=== PATIENT | female | born 1965 | race Caucasian/White ===

== ENCOUNTER 2017-12-19 22:51 | Emergency (ER) | payer OTHER ==
[~2017-12-19] VITALS: Ht 165.1 cm; Wt 95.7 kg
--- OUTSIDE RECORDS SUMMARY | ~2017-12-19 | XMS | Clinical Summary ---
Demographics + + + | Address | [address] | | | [place] [address] | + + + | Home Phone | | + + + | Preferred Language | Unknown | + + + | Marital Status | | + + + | Temple Affiliation | NON | + + + | Race | White | + + + | Ethnic Group | Not or | + + + Author + + + | Author | [facility] | + + + | Organization | [facility] | + + + | Address | Unknown | + + + | Phone | Unavailable | + + + Support + + +---------+ + | Name | Relationship | Address | Phone | + + +---------+ + | ERIC BUI | ECON | Unknown | | + + +---------+ + Care Team Providers + +------+ + | Care Crematory Operator Name | Role | Phone | + +------+ + | Alphonso Benedict MD | PP | | + +------+ + Source Comments VENUS is fully live [facility] both [facility] and [facility] Allergies + + + + + + | Active Allergy | Reactions | Severity | Noted | Comments | | | | | Date | | + + + + + + | Atenolol | Galactorrhea | | 12/06/19 | | | | | | 15 | | + + + + + + | Ciprofloxacin | Dizziness, Nausea | | 12/06/19 | | | | and Vomiting | | 15 | | + + + + + + Current Medications + + +--------+---------+------+------+-------+ | Prescription | Sig. | Disp. | Refills | Star | End | Statu | | | | | | t | Date | s | | | | | | Date | | | + + +--------+---------+------+------+-------+ | VENLAFAXINE 75 mg | | | | 07/0 | | Activ | | oral tablet extended | | | | 4/20 | | e | | release 24hr | | | | 15 | | | + + +--------+---------+------+------+-------+ | ranitidine 75 mg | Take 75 mg by mouth | | | | | Activ | | oral tablet | two times daily. | | | | | e | + + +--------+---------+------+------+-------+ | cyclobenzaprine 10 | Take 10 mg by mouth | | | | | Activ | | mg oral tablet | three times daily as | | | | | e | | | needed. Do not use | | | | | | | | longer than 2-3 | | | | | | | | weeks. | | | | | | + + +--------+---------+------+------+-------+ | ibuprofen 200 mg | Take 200 mg by mouth | | | | | Activ | | oral tablet | every six hours as | | | | | e | | | needed. | | | | | | + + +--------+---------+------+------+-------+ | loratadine 10 mg | Take 10 mg by mouth | | | | | Activ | | oral tablet | once daily. | | | | | e | + + +--------+---------+------+------+-------+ | meclizine 25 mg | Take 25 mg by mouth | | | | | Activ | | oral tablet | twice daily as | | | | | e | | | needed for | | | | | | | | nausea/vomiting. | | | | | | + + +--------+---------+------+------+-------+ | acetaminophen 500 | Take 1,000 mg by | | | | | Activ | | mg oral tablet | mouth every six | | | | | e | | | hours as needed. | | | | | | + + +--------+---------+------+------+-------+ | oxyCODONE, | Take 1 tablet by | 20 | 0 | 08/2 | | Activ | | immediate release, 5 | mouth every six | tablet | | 1/20 | | e | | mg oral tablet | hours as needed for | | | 15 | | | | | moderate pain. | | | | | | + + +--------+---------+------+------+-------+ | senna-docusate | Take 1 tablet by | 30 | 1 | 08/2 | | Activ | | (SENNA PLUS) 8.6-50 | mouth once daily. | tablet | | 1/20 | | e | | mg oral tablet | | | | 15 | | | + + +--------+---------+------+------+-------+ | NADOLOL ORAL | Take 30 mg by mouth | | | | | Activ | | | once daily. | | | | | e | + + +--------+---------+------+------+-------+ Active Problems + + + | Problem | Noted Date | + + + | Malignant melanoma of skin of lower limb, including hip (HCC) | 12/05/2014 | + + + Encounters +--------+ + + + + | Date | Type | Specialty | Care Team | Description | +--------+ + + + + | 11/18/ | Documentati | | Other, Faculty | | | 2018 | on | | | | +--------+ + + + + from Last 3 Months Family History + + +------+ + | Medical History | Relation | Name | Comments | + + +------+ + | Alcohol/Drug | Brother | | | + + +------+ + | Allergies | Brother | | | + + +------+ + | Arthritis | Brother | | | + + +------+ + | Alcohol/Drug | Father | | | + + +------+ + | Allergies | Father | | | + + +------+ + | Asthma | Father | | | + + +------+ + | Cancer | Father | | Lung | + + +------+ + | Heart Disease | Father | | | + + +------+ + | Hypertension | Father | | | + + +------+ + | Stroke | Father | | | + + +------+ + | Arthritis | Maternal | | | | | Grandmoth | | | | | er | | | + + +------+ + | Blood Disease | Maternal | | Von Willebrand | | | Grandmoth | | | | | er | | | + + +------+ + | Cancer | Maternal | | Breast | | | Grandmoth | | | | | er | | | + + +------+ + | Allergies | Mother | | | + + +------+ + | Arthritis | Mother | | | + + +------+ + | Cancer | Mother | | melanoma x2, breast, kidney | + + +------+ + | Heart Disease | Mother | | | + + +------+ + | Alcohol/Drug | Paternal | | | | | Aunt | | | + + +------+ + | Cancer | Paternal | | Lung, Kidney | | | Aunt | | | + + +------+ + | Cancer | Paternal | | Stomach, Lymphoma | | | Grandfath | | | | | er | | | + + +------+ + | Cancer | Paternal | | Pancreatic | | | Grandmoth | | | | | er | | | + + +------+ + | Allergies | Son | | | + + +------+ + | Diabetes | Son | | | + + +------+ + + +------+--------+ + | Relation | Name | Status | Comments | + +------+--------+ + | Brother | | | | + +------+--------+ + | Father | | | | + +------+--------+ + | Maternal Grandmother | | | | + +------+--------+ + | Mother | | | | + +------+--------+ + | Paternal Aunt | | | | + +------+--------+ + | Paternal Grandfather | | | | + +------+--------+ + | Paternal Grandmother | | | | + +------+--------+ + | Son | | | | + +------+--------+ + Social History + +-------+ +--------+------+ | Tobacco Use | Types | Packs/Day | Years | Date | | | | | Used | | + +-------+ +--------+------+ | Never Smoker | | | | | + +-------+ +--------+------+ + +---+---+---+ | Smokeless Tobacco: | | | | | Never Used | | | | + +---+---+---+ + + +---------+ + | Alcohol Use | Drinks/We | oz/Week | Comments | | | ek | | | + + +---------+ + | Yes | 1-2 | 0.5 - | | | | Standard | 1.0 | | | | drinks or | | | | | | | | | | equivalen | | | | | t | | | + + +---------+ + + + + | Sex Assigned at | Date Recorded | | | | + + + | Not on file | | + + + Last Filed Vital Signs + + + + | Vital Sign | Reading | Time Taken | + + + + | Blood Pressure | 125/64 | 03/27/2015 3:10 PM PST | + + + + | Pulse | 51 | 03/27/2015 3:10 PM PST | + + + + | Temperature | 36.3 C (97.3 F) | 03/27/2015 3:10 PM PST | + + + + | Respiratory Rate | 16 | 03/27/2015 3:10 PM PST | + + + + | Oxygen Saturation | 99% | 02/20/2015 2:56 PM PDT | + + + + | Inhaled Oxygen | - | - | | Concentration | | | + + + + | Weight | 91.9 kg (202 lb 8 | 03/27/2015 3:10 PM PST | | | oz) | | + + + + | Height | 163.8 cm (5' 4.5") | 12/05/2014 11:51 AM PDT | + + + + | Body Mass Index | 34.22 | 03/27/2015 3:10 PM PST | + + + + Plan of Treatment + + + + + | Health Maintenance | Due Date | Last Done | Comments | + + + + + | INFLUENZA VACCINE | | 03/16/2015, 03/31/2013, | | | (FLU SHOT) | 8 | 04/10/2012 | | + + + + + Results Not on filefrom Last 3 Months Insurance + +--------+ +------+ + + | Payer | Benefi | Subscriber | Type | Phone | Address | | | t Plan | ID | | | | | | / | | | | | | | Group | | | | | + +--------+ +------+ + + | [employer] PPO | HEALTH | xxxxxxxxx | PPO | [phone] [address] | | | NET | | | [phone] | [place] | | | PPO | | | | [phone] | + +--------+ +------+ + + + +--------+ +--------+ + + | Guarantor Name | Accoun | Relation to | Date | Phone | Billing Address | | | t Type | Patient | of | | | | | | | | | | + +--------+ +--------+ + + | JADEN SOLANO | Person | Self [birth year] | Home: | [address] | | | al/[place] | | 1966 | [phone] | [place] [address] | | | [place]el | | | [phone] | | + +--------+ +--------+ + +
--- OUTSIDE RECORDS SUMMARY | ~2017-12-19 | XMS | Encounter Summary ---
Demographics + + + | Address | [address] | | | [place] [address] | + + + | Home Phone | | + + + | Preferred Language | Unknown | + + + | Marital Status | | + + + | Amish Affiliation | NON | + + + | Race | White | + + + | Ethnic Group | Not or | + + + Author + + + | Author | [facility] | + + + | Organization | [facility] | + + + | Address | Unknown | + + + | Phone | Unavailable | + + + Support + + +---------+ + | Name | Relationship | Address | Phone | + + +---------+ + | ERIC BUI | ECON | Unknown | | + + +---------+ + Care Team Providers + +------+ + | Care Fermenter Champagne Name | Role | Phone | + +------+ + | Alphonso Benedict MD | PCP | | + +------+ + Encounter Details +--------+ + + + + | Date | Type | Department | Care Team | Description | +--------+ + + + + | 11/18/ | Documentati | Health Information | Other, Faculty | | | 2018 | on | Services [address] | [phone] | | | | | [facility] | | | | | | Road Mailcode: | | | | | | [address] | | | | | | [facility] [place] | | | | | [place], [place] | | | | | | [address] | | | | | | [phone] | | | +--------+ + + + + Social History + +-------+ +--------+------+ | [...] on file | | + + + as of this encounter Plan of Treatment Not on fileas of this encounter Visit Diagnoses Not on filein this encounter"
--- OUTSIDE RECORDS SUMMARY | ~2017-12-19 | XMS | Encounter Summary ---
Demographics + + + | Address | [address] | | | [place] [address] | + + + | Home Phone | | + + + | Preferred Language | Unknown | + + + | Marital Status | | + + + | Druze Affiliation | NON | + + + | Race | White | + + + | Ethnic Group | Not or | + + + Author + + + | Author | [facility] | + + + | Organization | [facility] | + + + | Address | Unknown | + + + | Phone | Unavailable | + + + Support + + +---------+ + | Name | Relationship | Address | Phone | + + +---------+ + | ERIC BUI | ECON | Unknown | | + + +---------+ + Care Team Providers + +------+ + | Care Hoop Bending Machine Operator Name | Role | Phone | [...] on | Services [address] | [phone] | | | | | [facility] | | | | | | Road Mailcode: | | | | | | [address] | | | | | | [facility] [place] | | | | | [place], [place] | | | | | | [address] | | | | | | [phone] | | | +--------+ + + + [...]
--- OUTSIDE RECORDS SUMMARY | ~2017-12-19 | XMS | Clinical Summary ---
Demographics + + + | Address | [address] | | | [place] [address] | + + + | Home Phone | | + + + | Preferred Language | Unknown | + + + | Marital Status | | + + + | Episcopal Affiliation | NON | + + + | Race | White | + + + | Ethnic Group | Not or | + + + Author + + + | Author | [facility] | + + + | Organization | [facility] | + + + | Address | Unknown | + + + | Phone | Unavailable | + + + Support + + +---------+ + | Name | Relationship | Address | Phone | + + +---------+ + | ERIC BUI | ECON | Unknown | | + + +---------+ + Care Team Providers + +------+ + | Care Bulkhead Carpenter Name | Role | Phone | + +------+ + | Alphonso Benedict MD | PP | | + +------+ + Source Comments [facility]EN[facility] is fully live [facility] Allergies + + + + [...] | HEALTH | [phone] | PPO | [phone] [address] | | | NET | | | [phone] | [place] | | | PPO | | | | [phone] | + +--------+ +------+ + + + [...] | 1966 | [phone] | [place] [address] | | | [place] | | | [phone] | | + +--------+ +--------+ + +
[~2017-12-19 22:51] MED LIST: BACTRIM DS TAB1 EACH PO; BOTOX100 UNITS SUB-Q; CEPHALEXIN500 MG PO; CLARITIN10 MG PO; DRISDOL50000 UNIT PO; EFFEXOR XR75 MG PO; NADOLOL40 MG PO; NORCO 5-325 TA1 EACH PO; OMEPRAZOLE20 MG PO; OXYCODONE HCL5 MG PO; PATADAY2.5 ML OPTH; PROBIOTIC1 EAC1 PO; REGLAN10 MG PO; RELPAX40 MG PO; SUMATRIPTAN SU100 MG PO; TOPAMAX25 MG PO; VENLAFAXINE HCL75 M2 PO; VICODIN 5-3001 EACH PO; VIT D2; VITAMIN B-2100 MG; WELLBUTRIN SR150 MG PO
[2017-12-19] MEDS ORDERED: DOXYCYCLINE HY100 MG PO (23:20)
[2017-12-20] MEDS ORDERED: NORCO 5-325 TA1 EACH PO (01:54)
== END 2017-12-20 02:05 | disposition home or self-care (01) ==
LOC: ED 22:51
DX: N20.2 Calculus of kidney with calculus of ureter (principal); I10 Essential (primary) hypertension; Z88.8 Allergy status to other drugs, medicaments and biological substances; Z88.5 Allergy status to narcotic agent; Z88.6 Allergy status to analgesic agent; Z88.1 Allergy status to other antibiotic agents; Z79.899 Other long term (current) drug therapy
CPT/HCPCS: 74176; 81001; 99284

== ENCOUNTER 2019-01-10 11:31 | Emergency (ER) | payer OTHER ==
[~2019-01-10] VITALS: Ht 165.1 cm; Wt 90.7 kg
[~2019-01-10 11:31] MED LIST changes: +AZO CRANBERRY1 EACH PO; +CURCUMIN1 GM MISC; +DOXYCYCLINE HY100 MG PO; +METAMUCIL0.4 GM PO; +PERCOCET 5-3251 EACH PO; +PYRIDIUM200 MG PO
[2019-01-10] MEDS ORDERED: MOBIC7.5 MG PO (11:44)
--- NOTE | 2019-01-10 16:06 | EKG ---
[facility] [address] [facility] [place], [place] [address] Signed Sinus bradycardia Otherwise normal ECG When compared with ECG of 20-JAN-2018 13:50, No significant change was found Confirmed by PREETHI PRIETO MD ([id number]) on 01/10/2019 4:05:47 PM Electronically Signed By: PREETHI PRIETO MD 01/10/19 1606 PATIENT NAME: JADEN SOLANO JHONNY Electrocardiogram DATE OF : [birth year] PHYSICIAN: PREETHI PRIETO MD REPORT #: [id number] REPORT IS CONFIDENTIAL AND NOT TO BE RELEASED WITHOUT AUTHORIZATION
[2019-01-10] MEDS ORDERED: ZOFRAN4 MG PO (16:20)
== END 2019-01-10 16:38 | disposition home or self-care (01) ==
LOC: ED 11:31
DX: R07.9 Chest pain, unspecified (principal); K76.9 Liver disease, unspecified; I10 Essential (primary) hypertension; G43.909 Migraine, unspecified, not intractable, without status migrainosus; Z88.8 Allergy status to other drugs, medicaments and biological substances; Z88.5 Allergy status to narcotic agent; Z88.1 Allergy status to other antibiotic agents; Z79.899 Other long term (current) drug therapy
CPT/HCPCS: 71046; 74177; 80053; 83690; 83735; 84484; 85025; 93005; 93010; 99285-25; J1170; J2405; J7030; Q9967

== ENCOUNTER 2020-05-23 05:28 | Emergency (ER) | payer OTHER ==
[~2020-05-23] VITALS: Ht 165.1 cm; Wt 93.0 kg
[~2020-05-23 05:28] MED LIST changes: +MOBIC7.5 MG PO; +ZOFRAN4 MG PO
[2020-05-23] MEDS ORDERED: METHOCARBAMOL500 MG PO (05:44)
[2020-05-23] MEDS ORDERED: HYDROCODON-ACE1 EA10 PO (06:06)
[2020-05-23] MEDS ORDERED: DICLOFENAC SODI75 MG PO (06:06)
== END 2020-05-23 06:24 | disposition home or self-care (01) ==
LOC: ED 05:28
DX: S29.012A Strain of muscle and tendon of back wall of thorax, initial encounter (principal); W22.8XXA Striking against or struck by other objects, initial encounter; I10 Essential (primary) hypertension; G43.909 Migraine, unspecified, not intractable, without status migrainosus; Z88.8 Allergy status to other drugs, medicaments and biological substances; Z88.1 Allergy status to other antibiotic agents; Z88.5 Allergy status to narcotic agent; Z88.6 Allergy status to analgesic agent; Z79.899 Other long term (current) drug therapy
CPT/HCPCS: 99283

== ENCOUNTER 2020-06-07 12:02 | Day surgery (SDC) | payer OTHER ==
[~2020-06-07] VITALS: Ht 165.1 cm; Wt 96.0 kg
[~2020-06-07 12:02] MED LIST changes: +DICLOFENAC SODI75 MG PO; +HYDROCODON-ACE1 EA10 PO; +METHOCARBAMOL500 MG PO
--- NOTE | 2020-06-07 14:05 | NUR ---
06/07/20 1405 Rosa Trujillo 1401 PATIENT RESTING WITH EYES CLOSED. RESP EVEN AND UNLABORED, NC AT 2 LITERS. DENIES PAIN OR NAUSEA WHEN AWAKE, BACK TO SLEEP WHEN NOT STIUMLATED.
--- NOTE | 2020-06-10 15:46 | OR ---
[facility] [address] [place], [place] [address] Signed DATE OF OPERATION: 06/07/2020 SURGEON: Aria Poole MD PREOPERATIVE DIAGNOSES: 1. Persistent diarrhea. 2. History of intramural endometrioma resected in 2006 (sigmoid resection). 3. History of tubular adenoma in 2017 (cecum). POSTOPERATIVE DIAGNOSES: 1. No evidence of recurrent endometrioma. 2. Widely patent anastomosis (coloproctostomy). 3. Small sessile polyp of cecum and sessile polyp of distal descending colon. No evidence of colitis. PROCEDURE: Total colonoscopy to cecum with cold morcellation polypectomy x1 and cold snare polypectomy x1 and biopsy of cecum and rectum. ANESTHESIA: Intravenous sedation, fentanyl 150 mcg and Versed 6 mg. INDICATIONS: This 54-year-old white woman has a history of sigmoid colectomy by me for intramural endometrioma in 2006. She has of course undergone abdominal hysterectomy and as well. The patient has complaints of diarrhea. She has taken Questran. She has had no blood per rectum. She does have history of tubular adenoma of the cecum, excised in 2017. She has been at this time to undergo colonoscopy on the basis of her diarrhea and for surveillance regarding polyps. She understands the risks of bleeding, infection, and perforation and wished to proceed. FINDINGS: The prep was excellent. Complete colonoscopy was undertaken to the cecum. There was no evidence of colitis. She did have two polyps, one at the cecum and the other in the distal descending colon, both excised completely. Biopsies were taken of the rectum and cecum to assess for occult colitis. DESCRIPTION OF PROCEDURE: The patient brought to the endoscopy suite and placed in lateral decubitus position, given intravenous sedation to the point of slurred speech and nystagmus. Digital rectal Electronically Signed By: ARIA POOLE MD 06/10/20 1546 PATIENT NAME: JADEN SOLANO OPERATIVE REPORT DATE OF : [birth year] REPORT #: [id number] PHYSICIAN: ARIA POOLE MD PCP: ADILENE BENEDICT MD REPORT IS CONFIDENTIAL AND NOT TO BE RELEASED WITHOUT AUTHORIZATION [facility] [address] [place], [place] [address] Signed examination was normal. An Olympus video colonoscope was passed into the rectum and manipulated throughout the colon. The anastomosis was a side-to-end coloproctostomy and was widely patent. The scope was ultimately advanced to the cecum. Ileocecal valve was visualized, full intubation of the cecum was not forthcoming due to the patient's discomfort. The mucosa behind the ileocecal valve was elevated and found to be normal and biopsy obtained to assess for occult colitis. The scope was withdrawn and immediately noted was a small sessile polyp essentially in the region of the cecum. This was excised with cold morcellation technique. The scope was further withdrawn, remaining colon was normal until approximately 40 cm from the anal verge, where a sessile polyp was noted, this was excised with cold snare technique. There was no untoward bleeding. The scope was further withdrawn, the anastomosis was re-examined, found to be widely patent. The rectum was normal. Biopsies were obtained to assess for occult colitis once again. The scope was removed. The patient was taken to the recovery room in good condition. CONCLUDING DIAGNOSIS: Polyps x2. No evidence of colitis. Widely patent anastomosis. No evidence of residual endometrial focus. PLAN: She will return to the ongoing care of Dr. Benedict. We would recommend repeat colonoscopy in 5 years. If diarrhea is more problematic, I am happy to see her again and help manage that. MD EB Mccormack/JAMARL /[id number] cc: Dr. Adilene Benedict MD Copies: ADILENE BENEDICT MD Electronically Signed By: ARIA POOLE MD 06/10/20 1546 PATIENT NAME: JADEN SOLANO OPERATIVE REPORT DATE OF : [birth year] REPORT #: [id number] PHYSICIAN: ARIA POOLE MD PCP: ADILENE BENEDICT MD REPORT IS CONFIDENTIAL AND NOT TO BE RELEASED WITHOUT AUTHORIZATION [facility] [address] [place], [place] [address] Signed ~ Electronically Signed By: ARIA POOLE MD 06/10/20 1546 PATIENT NAME: JADEN SOLANO OPERATIVE REPORT DATE OF : [birth year] REPORT #: [id number] PHYSICIAN: ARIA POOLE MD PCP: ADILENE BENEDICT MD REPORT IS CONFIDENTIAL AND NOT TO BE RELEASED WITHOUT AUTHORIZATION
--- NOTE | 2020-06-11 14:28 | PATH ---
[facility] [address] [place], [place] [address] Signed SPECIMEN(S): A CECUM SPECIMEN(S): B CECAL POLYP SPECIMEN(S): C COLON POLYP AT 40 CM SPECIMEN(S): D RECTUM SPECIMEN SOURCE: A. CECUM B. CECAL POLYP C. COLON POLYP AT 40 CM D. RECTUM CLINICAL HISTORY: History of colon polyps, surveillance. Postop: Colon polyps. MICROSCOPIC DESCRIPTION: Histologic sections of all submitted blocks are examined by light microscopy. These findings, together with the gross examination, support the pathologic diagnosis. FINAL PATHOLOGIC DIAGNOSIS: A. Cecum, biopsy: - Benign colonic mucosa, negative for dysplasia (one fragment). B. Cecal polyp: - Tubular adenoma (one fragment). C. Colon polyp at 40 cm: - Tubular adenoma (two fragments). D. Rectum, biopsy: - Benign polypoid colonic mucosa with focal slight hyperplastic features (one fragment). JVR:[facility]:C2NR GROSS DESCRIPTION: Four specimens are received in four containers, labeled "Lazara Solano." A. The specimen, labeled " JsLazara, #1," and designated on the requisition "cecum," is received in formalin and consists of two schumacher soft tissue fragment(s) that measure that 0.1 and 0.4 cm in greatest dimension. The specimen is entirely submitted in cassette (A1). B. The specimen, labeled " Js Lazara, #2," and designated on the requisition "cecum polyp," is received in formalin and consists of four cshumacher soft tissue fragment(s) that measure 0.3-0.5 cm in greatest dimension. The specimen is entirely submitted in cassette (B1). C. The specimen, labeled " JsLazara, #3," and designated on the PATIENT NAME: LAZARA SOLANO PATHOLOGY DATE OF : 69 REPORT #: [id number] PHYSICIAN: DEREK PATHOLOGY PCP: ADILENE RODRIGUEZ MD REPORT IS CONFIDENTIAL AND NOT TO BE RELEASED WITHOUT AUTHORIZATION [facility] [address] [place], [place] [address] Signed requisition "colon polyp at 40 cm," is received in formalin and consists of two schumacher soft tissue fragment(s) that measure 0.4 and 0.6 cm in greatest dimension. The specimen is entirely submitted in cassette (C1). D. The specimen, labeled " Lazara Solano, #4," and designated on the requisition "rectum," is received in formalin and consists of two schumacher soft tissue fragment(s) that measure 0.3 and 0.4 cm in greatest dimension. The specimen is entirely submitted in cassette (D1). FB (under the direct supervision of a pathologist) The Gross Description was prepared using a voice recognition system. The report was reviewed for accuracy; however, sound-alike word errors, addition and/or deletions may occur. If there is any question about this report, please contact Client Services. PERFORMING LABORATORY: The technical component was performed by [email or web address], [address] [place] [id number] ([place] [employer] Front Desk Clerk: Pallavi Vicente MD; CLIA# [id number]). [email or web address] [address] [place] [id number]. Diagnostician: Wiley Calzada MD Pathologist Electronically Signed 06/11/2020 Copies: ~ PATIENT NAME: SOLANOLAZARA LYNN PATHOLOGY DATE OF : 69 REPORT #: [id number] PHYSICIAN: DEREK PATHOLOGY PCP: ADILENE RODRIGUEZ MD REPORT IS CONFIDENTIAL AND NOT TO BE RELEASED WITHOUT AUTHORIZATION
== END 2020-06-07 14:30 | disposition home or self-care (01) ==
LOC: DS 12:02 → OPS 12:02 → DS 13:00 → OPS 13:00
PROVIDERS: ATTEND Surgery
PROC: 0DBP8ZZ Excision of Rectum, Via Natural or Artificial Opening Endoscopic (ICD-10-PCS; 2020-06-07)
PROC: 0DBE8ZZ Excision of Large Intestine, Via Natural or Artificial Opening Endoscopic (ICD-10-PCS; principal; 2020-06-07 12:00)
DX: K52.9 Noninfective gastroenteritis and colitis, unspecified (principal); D12.0 Benign neoplasm of cecum; D12.4 Benign neoplasm of descending colon; K21.9 Gastro-esophageal reflux disease without esophagitis; I10 Essential (primary) hypertension; Z86.010 Personal history of colon polyps; Z83.71 Family history of colonic polyps; Z90.710 Acquired absence of both cervix and uterus; Z90.49 Acquired absence of other specified parts of digestive tract; Z87.42 Personal history of other diseases of the female genital tract; Z88.6 Allergy status to analgesic agent; Z88.1 Allergy status to other antibiotic agents; Z88.8 Allergy status to other drugs, medicaments and biological substances; Z79.899 Other long term (current) drug therapy; Z85.820 Personal history of malignant melanoma of skin
CPT/HCPCS: 99153; G0500; J2250; J3010; J7121

== ENCOUNTER 2020-10-08 03:49 | Emergency (ER) | payer OTHER ==
[~2020-10-08] VITALS: Ht 165.1 cm; Wt 95.7 kg
[2020-10-08] MEDS ORDERED: HYDROCODON-ACE1 EA10 PO (06:09)
[2020-10-08] MEDS ORDERED: ZOFRAN4 MG PO (06:09)
== END 2020-10-08 06:19 | disposition home or self-care (01) ==
LOC: ED 03:49
DX: N20.0 Calculus of kidney (principal); I10 Essential (primary) hypertension; G43.909 Migraine, unspecified, not intractable, without status migrainosus; Z88.8 Allergy status to other drugs, medicaments and biological substances; Z88.6 Allergy status to analgesic agent; Z88.5 Allergy status to narcotic agent; Z88.1 Allergy status to other antibiotic agents; Z79.899 Other long term (current) drug therapy
CPT/HCPCS: 74176; 80053; 81001; 85025; 96374; 96375; 99284-25; J1170; J2405

== ENCOUNTER 2023-05-11 22:52 | Emergency (ER) | payer OTHER ==
[~2023-05-11] VITALS: Ht 165.1 cm; Wt 104.3 kg
[2023-05-11] MEDS ORDERED: CYCLOBENZAPRINE10 MG PO (23:16)
[2023-05-11 23:19] LABS: BILIRUBIN, URINE NEGATIVE (negative); BLOOD/HGB, URINE MODERATE (Negative); KETONE, URINE NEGATIVE (Negative); LEUK ESTERASE, URINE MODERATE (negative); NITRITE, URINE POSITIVE (negative); PH, URINE 5.5 (5-7)
[2023-05-11 23:26] LABS: BACTERIA, URINE 2+ /hpf (negative); CASTS, URINE NONE SEEN \\lpf; CRYSTALS, URINE NONE SEEN (0-1+); EPITHELIAL CELLS, URINE SQUAMOUS 1+ /lpf (0-1+); REFLEX CULTURE, URINE Yes (No); WHITE BLOOD CELLS, URINE >50 /HPF (0-5)
[2023-05-12 00:02] LABS: INFLUENZA B NAA NEGATIVE (NEGATIVE); RESPIRATORY SYNCYTIAL VIR NAA NEGATIVE (NEGATIVE)
[2023-05-12 00:08] LABS: MCH 28.4 (27-36); MCHC 33.8 g/dl (30-36); MCV 84.1 fl (81-99)
[2023-05-12 00:29] LABS: BASOPHILS 0.3 % (0-2); EOSINOPHILS 0.1 % (0-6); HEMATOCRIT 43.5 % (35.0-50.0); HEMOGLOBIN 14.7 g/dL (12.0-18.0); LYMPHOCYTES 11.5 % (24-44); MONOCYTES 9.1 % (0-12); PLATELET COUNT 118 K/uL (140-440); RBC 5.17 M/ul (4.3-5.7); RDW 14.3 (10.5-15.0)
[2023-05-12 00:33] LABS: LACTIC ACID, BLOOD 1.1 mmol/L (0.4-2.0)
[2023-05-12 00:45] LABS: ALBUMIN 3.5 g/dL (3.4-5.0); ALBUMIN/GLOBULIN RATIO 0.95 (1.1-2.4); BILIRUBIN, TOTAL 1.3 ng/dL (0.2-1.0); BUN/CREATININE RATIO 9.67 (6.0-28.6); CALCIUM 9.2 mg/dL (8.5-10.1); CREATININE, SERUM 0.93 mg/dL (0.55-1.02); PROTEIN, TOTAL 7.2 g/dL (6.4-8.2)
[2023-05-12 02:36] VITALS: BP 134/75
== END 2023-05-12 02:39 | disposition short-term general hospital (02) ==
LOC: ED 22:52
PROVIDERS: Emergency Medicine
DX: N13.6 Pyonephrosis (principal); I10 Essential (primary) hypertension; Z20.822 Contact with and (suspected) exposure to COVID-19; Z88.5 Allergy status to narcotic agent; Z88.6 Allergy status to analgesic agent; Z88.1 Allergy status to other antibiotic agents; Z88.8 Allergy status to other drugs, medicaments and biological substances; Z79.899 Other long term (current) drug therapy
CPT/HCPCS: 36415; 71045; 74176; 80053; 81001; 83605; 83690; 85025; 87040; 87077; 87088; 87186; 87502; 96365; 96375; 96376; 99284-25; J0696; J1170; J2405; U0002

== ENCOUNTER 2023-09-12 21:35 | Emergency (ER) | payer OTHER ==
[~2023-09-12] VITALS: Ht 165.1 cm; Wt 103.1 kg
[~2023-09-12 21:35] MED LIST changes: +CYCLOBENZAPRINE10 MG PO; +FLOMAX0.4 MG PO
--- OUTSIDE RECORDS SUMMARY | 2023-09-12 21:37 | XMS ---
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 Kevyn has no Care Guidelines for this patient. Josue VISIT COUNT (12 MO.) 3 SAVANNA Davis TOTAL 3 NOTE: Visits indicate total known visits. ED/UCC VISIT TRACKING (12 MO.) 09/12/2023 21:36 SAVANNA Cooper [place] TYPE: Emergency COMPLAINT: - RT SIDE FLANK PAIN 07/29/2023 22:05 SAVANNA Cooper [place] TYPE: Emergency COMPLAINT: - CHEST PAIN DIAGNOSES: - Allergy status to analgesic agent - Allergy status to narcotic agent - Allergy status to other antibiotic agents - Allergy status to other drugs, medicaments and biological substances - Chest pain, unspecified - Essential (primary) hypertension - Other chest pain - Other exterminator termite (current) drug therapy 05/11/2023 22:53 SAVANNA Cooper [place] TYPE: Emergency COMPLAINT: - FLANK PAIN DIAGNOSES: - Allergy status to analgesic agent - Allergy status to narcotic agent - Allergy status to other antibiotic agents - Allergy status to other drugs, medicaments and biological substances - Contact with and (suspected) exposure to COVID-19 - Essential (primary) hypertension - Other alf (current) drug therapy - Pyonephrosis - Unspecified abdominal pain INPATIENT VISIT TRACKING (12 MO.) No inpatient visits to display in this time frame [email or web address]
[2023-09-12] MEDS ORDERED: ondansetron HCL 4 MG/2 ML VIAL IV PRN (22:00)
[2023-09-12 22:04] LABS: BILIRUBIN, URINE NEGATIVE (negative); BLOOD/HGB, URINE MODERATE (Negative); KETONE, URINE NEGATIVE (Negative); LEUK ESTERASE, URINE MODERATE (negative); NITRITE, URINE POSITIVE (negative); PH, URINE 6.5 (5-7)
[2023-09-12 22:05] LABS: BASOPHILS 1.1 % (0-2); EOSINOPHILS 0.8 % (0-6); HEMATOCRIT 44.3 % (35.0-50.0); HEMOGLOBIN 14.8 g/dL (12.0-18.0); LYMPHOCYTES 28.6 % (24-44); MCH 28.7 (27-36); MCHC 33.4 g/dl (30-36); MCV 85.9 fl (81-99); MONOCYTES 6.3 % (0-12); NEUTROPHILS 63.2 % (39-80); PLATELET COUNT 162 K/uL (140-440); RBC 5.16 M/ul (4.3-5.7); RDW 14.1 (10.5-15.0)
[2023-09-12] MEDS ORDERED: HYDROmorphone HCL 1 MG/ML SYR IV PRN (22:15)
[2023-09-12 22:16] LABS: ALBUMIN/GLOBULIN RATIO 1.18 (1.1-2.4); ANION GAP 15.1 (7-21); BILIRUBIN, TOTAL 0.9 ng/dL (0.2-1.0); BUN/CREATININE RATIO 13.59 (6.0-28.6); CALCIUM 9.5 mg/dL (8.5-10.1); CREATININE, SERUM 1.03 mg/dL (0.55-1.02); POTASSIUM 4.1 mmol/L (3.5-5.1); PROTEIN, TOTAL 7.4 g/dL (6.4-8.2)
[2023-09-12 22:17] LABS: BACTERIA, URINE 1+ /hpf (negative); CASTS, URINE NONE SEEN \\lpf; COLLECTION TYPE, URINE CLEAN CATCH; CRYSTALS, URINE NONE SEEN (0-1+); EPITHELIAL CELLS, URINE SQUAMOUS 1+ /lpf (0-1+); REFLEX CULTURE, URINE Yes (No); WHITE BLOOD CELLS, URINE 21-40 /HPF (0-5)
[2023-09-12] MEDS ORDERED: CEFTRIAXONE/SODIUM CHLORIDE 2 GM/100 ML PIGGYBACK IV ONE (23:00)
[2023-09-12] MEDS ORDERED: ONDANSETRON ODT8 MG PO (23:27)
[2023-09-12] MEDS ORDERED: MACROBID 100 M100 MG PO (23:27)
[2023-09-12] MEDS ORDERED: HYDROCODON-ACE1 EA10 PO (23:29)
[2023-09-12] MEDS ORDERED: NITROFURANTOIN MONOHYD MACROCR 100 MG HOME.PACK PO ONE (23:45)
[2023-09-12] MEDS ORDERED: ONDANSETRON 4 MG HOME.PACK SL ONE (23:45)
[2023-09-12] MEDS ORDERED: HYDROCODONE BIT/ACETAMINOPHEN 5/325 MG 1 TAB HOME.PACK PO ONE (23:45)
[2023-09-13 00:05] VITALS: BP 127/71
== END 2023-09-13 00:05 | disposition home or self-care (01) ==
LOC: ED 21:35
PROVIDERS: Family Medicine
DX: N39.0 Urinary tract infection, site not specified (principal); I10 Essential (primary) hypertension; G43.909 Migraine, unspecified, not intractable, without status migrainosus; Z88.8 Allergy status to other drugs, medicaments and biological substances; Z88.6 Allergy status to analgesic agent; Z88.1 Allergy status to other antibiotic agents; Z88.5 Allergy status to narcotic agent; Z79.899 Other long term (current) drug therapy
CPT/HCPCS: 36415; 74176; 80053; 81001; 85025; 96365; 96375; 99284-25; A9270; J0696; J1170; J2405